=== PATIENT | male | born 1995 | race Caucasian/White ===

== ENCOUNTER 2016-08-16 15:29 | Emergency (ER) | payer OTHER ==
[~2016-08-16] VITALS: Ht 177.8 cm; Wt 75.5 kg
[2016-08-16 15:34] VITALS: Ht 177.8 cm; Wt 75.5 kg
[2016-08-16] MEDS ORDERED: SOD CHLORIDE 0.9% 500 ML IV STA (15:57)
[2016-08-16] MEDS ORDERED: LEVETIRACETAM 1000 MG (PMX) 100 ML IVPB STA (15:57)
[2016-08-16] MEDS ORDERED: OXCA300T41 PO (16:00)
[2016-08-16] MEDS ORDERED: LEVE750T70 PO ×2 (16:01→18:32)
--- NOTE | 2016-08-16 16:11 | ERD ---
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 He fell down had some generalized tonic-clonic movement lasting about a minute. After he was very briefly postictal. He does suffer from a seizure disorder and had a glioblastoma removed last month at [facility]. States that when he fell forward he hit his chin. He does not have any significant pain currently. He feels otherwise well and has not had any signs of infection recently. He is on Keppra and oxcarbazepine for seizures. Has been out of Keppra for 3 days. ROS All systems reviewed and are negative except as per history of present illness. Medications Home Meds Active Scripts Levetiracetam* (Keppra*) 750 Mg Tablet, 750 MG PO TID, #30 TAB Prov:JENNIFER FRANKLIN DO 08/16/16 Reported Medications Levetiracetam* (Keppra*) 750 Mg Tablet, 2250 MG PO BID, TAB 08/16/16 Oxcarbazepine* (Oxcarbazepine*) 300 Mg Tablet, 900 MG PO BID, TAB 08/16/16 Allergies Allergies: Coded Allergies: No Known Allergy (Unverified , 08/16/16) Physical Exam Vitals Vital Signs Date Time Temp Pulse Resp B/P Pulse Ox O2 Delivery O2 Flow Rate FiO2 08/16/16 18:21 97.8 76 137/84 96 Room Air 08/16/16 17:42 70 16 124/76 100 Room Air 08/16/16 16:40 97.7 72 13 129/82 100 Room Air 08/16/16 15:34 97.3 65 20 126/67 99 Physical Exam Const: [] No distress Head: Atraumatic Eyes: Normal Conjunctiva, EOMI, PERRLA ENT: Normal External Ears, Nose and Mouth., 2 cm laceration to left chin. Neck: Full range of motion..~ No meningismus. Resp: Clear to auscultation bilaterally Cardio: Regular rate and rhythm, no murmurs Abd: Soft, non tender, non distended. Normal bowel sounds Skin: No petechiae or rashes Back: No midline or flank tenderness Ext: No cyanosis, or edema Neur: Awake and alert and oriented 3, cranial nerves II through XII intact, 5 out of 5 strength all extremities, cerebellar finger to nose intact, normal gait Psych: Normal Mood and Affect Result Diagram: 08/16/16 1605 08/16/16 1605 Results 24 hrs Laboratory Tests Test 08/16/16 16:05 White Blood Count 6.610^3/ul Red Blood Count 4.5010^6/ul Hemoglobin 14.2g/dl Hematocrit 41.7% Mean Corpuscular Volume 92.7fl Mean Corpuscular Hemoglobin 31.6pg Mean Corpuscular Hemoglobin Concent 34.1g/dl Red Cell Distribution Width 11.9% Platelet Count 92610^3/UL Mean Platelet Volume 8.7fl Neutrophils % 60.4% Lymphocytes % 28.3% Monocytes % 7.6% Eosinophils % 2.6% Basophils % 0.8% Nucleated Red Blood Cells % 0.0/100WBC Neutrophils # 4.010^3/ul Lymphocytes # 1.910^3/ul Monocytes # 0.510^3/ul Eosinophils # 0.210^3/ul Basophils # 0.110^3/ul Nucleated Red Blood Cells # 0.010^3/ul Sodium Level 146mmol/L Potassium Level 4.4mmol/L Chloride Level 108mmol/L Carbon Dioxide Level 28mmol/L Anion Gap 14 Blood Urea Nitrogen 11mg/dl Creatinine 0.78mg/dl Glucose Level 99mg/dl Calcium Level 9.3mg/dl Carbamazepine (Tegretol) Level < 3.0ug/ml Current Medications Medications (Trade) Dose Ordered Sig/Rene Route PRN Reason Start Time Stop Time Status Last Admin Dose Admin Sodium Chloride 500 ml @ 500 mls/hr Q1H STAT IV 08/16/16 15:57 08/16/16 16:56 DC 08/16/16 16:39 Levetiracetam (Keppra 1,000mg/ 100ml (Pmx)) 100 ml @ 400 mls/hr ONCE STAT IVPB 08/16/16 15:57 08/16/16 16:11 DC 08/16/16 16:38 Lidocaine (Xylocaine 2% (Mdv) 20 ml) 20 ml ONCE ONCE INJ 08/16/16 18:00 08/16/16 18:01 DC Procedures/MDM Seizure and patient with underlying seizure disorder with history of tumor removal [address] head is negative for any acute process. Patient had a brief postictal period and feels otherwise normal. Was not taking seizure medicine for 3 days. Was loaded with 1 g of Keppra here and I am going to discharge him with his normal dose of Keppra which is 750 3 times daily. Laceration was repaired. Patient has PCP and neurology follow-up. Observed for 3 hours in the ER with no further seizure activity. Normal neurological exam. Suture removal in [address] head interpretation: Evidence of prior craniotomy, I see no acute process. I see no hemorrhage, no mass-effect no midline shift no skull fracture Laceration repair note, horizontal 2 cm laceration to left chin: Anesthetized with 2 cc of lidocaine: Irrigated with normal saline, 2 simple interrupted 4-0 Prolene sutures were used to close the laceration complicated by mild active bleeding. Hemostasis was achieved. Good closure was achieved. Patient tolerated procedure with no complications. Departure Diagnosis: Primary Impression: Laceration of chin Additional Impressions: Seizure Head injury Condition: Stable JENNIFER FRANKLIN DO Aug 16, 2016 16:11
[2016-08-16 16:12] LABS: ADD SCAN DIFF NO
[2016-08-16 16:16] LABS: BASOPHIL # 0.1 10^3/ul (0.0-0.1); BASOPHILS % 0.8 % (0.0-2.0); EOSINOPHILS # 0.2 10^3/ul (0.0-0.5); EOSINOPHILS % 2.6 % (0.0-7.0); HEMATOCRIT 41.7 % (42.0-52.0); HEMOGLOBIN 14.2 g/dl (14.0-18.0); LYMPHOCYTES # 1.9 10^3/ul (0.8-2.9); LYMPHOCYTES % 28.3 % (15.0-51.0); MEAN CORPUSCULAR HEMOGLOBIN 31.6 pg (29.0-33.0); MEAN CORPUSCULAR HGB CONC 34.1 g/dl (32.0-37.0); MEAN CORPUSCULAR VOLUME 92.7 fl (82.0-101.0); MEAN PLATELET VOLUME 8.7 fl (7.4-10.4); MONOCYTE # 0.5 10^3/ul (0.3-0.9); MONOCYTES % 7.6 % (0.0-11.0); NEUTROPHILS % 60.4 % (39.0-77.0); PLATELET COUNT 267 10^3/UL (140-415); RED CELL DISTRIBUTION WIDTH 11.9 % (11.5-14.5); WHITE BLOOD COUNT 6.6 10^3/ul (4.8-10.8)
[2016-08-16 16:38] LABS: CALCIUM 9.3 mg/dl (8.4-10.2); CREATININE 0.78 mg/dl (0.61-1.24); POTASSIUM 4.4 mmol/L (3.5-5.1)
--- NOTE | 2016-08-16 17:24 | RADRPT ---
PROCEDURE: CT Brain without contrast. CLINICAL INDICATION: Seizure. TECHNIQUE: A CT of the brain was performed on a GE [employer] 64-slice CT scanner utilizing axial imaging from the skull base through the vertex without IV contrast. Multiplanar reformatted images were made. Images were reviewed on a PACS workstation. The CTDIvol is 43.17 mGy and the DLP is 824 .79 mGycm. One or the following dose reduction techniques were used: -Automated exposure control. -Adjustment of the mA and/or KV according to patient's size. -Use of iterative reconstruction technique COMPARISON: None FINDINGS: There is no intracranial hemorrhage, mass effect, or midline shift. No extra-axial fluid collection is seen. The ventricles and sulci are normal in size and configuration. There is a small area of en cephalomalacia in the right sylvian fissure, likely postoperative in nature. The density of the brai n is normal, and the rey white matter differentiation appears well-preserved. The visualized paran ying sinuses and mastoid air cells are aerated.. There has been previous right temporal craniotomy. IMPRESSION: 1. No evidence of acute intracranial pathology. 2. Small area of encephalomalacia in the right sylvian fissure subjacent to a prior right temporal craniotomy. RPTAT: [facility] Physician Benjie Date Time Electronically viewed and signed by Physician Benjie on 08/16/2016 17:23 /
[2016-08-16 17:42] VITALS: RESP 16
[2016-08-16] MEDS ORDERED: LIDOCAINE 2% (MDV) 20 ML INJ INJ ONE (18:00)
[2016-08-16 18:21] VITALS: BP 137/84; PULSE 76; TEMP 97.8
== END 2016-08-16 18:42 | disposition home or self-care (01) ==
LOC: E/R 15:29
DX: S01.81XA Laceration without foreign body of other part of head, initial encounter (principal); R40.2252 Coma scale, best verbal response, oriented, at arrival to emergency department; R56.9 Unspecified convulsions; S09.90XA Unspecified injury of head, initial encounter; R40.2142 Coma scale, eyes open, spontaneous, at arrival to emergency department; R40.2362 Coma scale, best motor response, obeys commands, at arrival to emergency department; W18.09XA Striking against other object with subsequent fall, initial encounter; Y92.9 Unspecified place or not applicable
CPT/HCPCS: 70450; 80048; 80156; 85025; J1953; J7040; Z7610; 36415; 96365

== ENCOUNTER 2016-08-23 14:12 | Emergency (ER) | payer OTHER ==
[~2016-08-23] VITALS: Ht 175.3 cm; Wt 74.5 kg
[~2016-08-23 14:12] MED LIST: LEVE750T70 PO; OXCA300T41 PO
[2016-08-23 14:14] VITALS: Ht 175.3 cm; Wt 74.5 kg
[2016-08-23] MEDS ORDERED: MUPI15CR9 TOP (14:31)
--- NOTE | 2016-08-23 14:58 | ERD ---
ER Documentation Chief Complaint Date/Time DATE: 08/23/16 TIME: 14:54 Chief Complaint suture removal (chin) HPI This is a 20-year-old male presents to the ER for suture removal. Patient had 2 sutures to his chin after a seizure that occurred a week ago. Patient has not had any seizures since then has been taking his seizure medication as prescribed. Patient states that whenever his abrasion has had a difficult time feeling and he is developing surrounding redness. He denies any pain to the area denies any discharge. He denies any fevers or chills. ROS 12 point review of systems was done, all negative except per HPI. Medications Home Meds Active Scripts Mupirocin Calcium* (Mupirocin*) 2% - 15 Gram Cream..g., 1 APPLIC TOP TID for 7 Days, #1 TUB Prov:GREGORY VALDOVINOS 08/23/16 Levetiracetam* (Keppra*) 750 Mg Tablet, 750 MG PO TID, #30 TAB Prov:JENNIFER FRANKLIN DO 08/16/16 Reported Medications Levetiracetam* (Keppra*) 750 Mg Tablet, 2250 MG PO BID, TAB 08/16/16 Oxcarbazepine* (Oxcarbazepine*) 300 Mg Tablet, 900 MG PO BID, TAB 08/16/16 Allergies Allergies: Coded Allergies: No Known Allergy (Unverified , 08/16/16) PMhx/Soc History of Surgery: Yes (brain tumor biopsy-removal ) Anesthesia Reaction: No Hx Neurological Disorder: Yes (seizure) Hx Respiratory Disorders: No Hx Cardiac Disorders: No Hx Psychiatric Problems: No Hx Miscellaneous Medical Probl: No Hx Alcohol Use: No Hx Substance Use: No Hx Tobacco Use: No Physical Exam Vitals Vital Signs Date Time Temp Pulse Resp B/P Pulse Ox O2 Delivery O2 Flow Rate FiO2 08/23/16 14:14 99.6 82 18 120/63 99 Physical Exam Const: [] Head: Atraumatic. Patient has a scar to the right scalp from previous surgery. Eyes: Normal Conjunctiva ENT: Normal External Ears, Nose and Mouth. Resp: Clear to auscultation bilaterally Cardio: Regular rate and rhythm, no murmurs Skin: 2 simple interrupted sutures weren't placed at the chin. No wound dehiscence no discharge no redness nontender to palpation or warm to the touch. There is an abrasion to the right dorsal hand with mild surrounding erythema. there is no discharge or warmth to the touch Neur: Awake and alert Psych: Normal Mood and Affect Procedures/MDM This is a 20-year-old male presents to the ER for suture removal. Sutures are removed without any complications or bleeding. Laceration site Appeared to Be Infected. Patient Does Have an Abrasion to the Right Dorsal Hand does have some surrounding erythema. He'll be sent home with the parents on for this. He is afebrile and well-appearing. He has full range of motion of his hand and is neurovascularly intact. Patient is to follow-up with his primary care doctor within 1-2 days or return to ER sooner symptoms worsen. My medical decision making was shared with the patient understands and agrees with plan. Departure Diagnosis: Primary Impression: Encounter for removal of sutures Condition: Stable Patient Instructions: Suture Removal, No Complication Referrals: NAVARRO BAKER (PCP) Additional Instructions: Call your primary care doctor TOMORROW for an appointment during the next 1-2 days.See the doctor sooner or return here if your condition worsens before your appointment time. GREGORY VALDOVINOS Aug 23, 2016 14:58
== END 2016-08-23 14:32 | disposition home or self-care (01) ==
LOC: E/R 14:12
DX: Z48.02 Encounter for removal of sutures (principal)
CPT/HCPCS: 99283

== ENCOUNTER 2017-03-17 16:46 | Emergency (ER) | END 2017-03-17 20:15 | disposition home or self-care (01) ==

== ENCOUNTER 2018-05-09 13:51 | Emergency (ER) | payer SELFPAY ==
[~2018-05-09] VITALS: Ht 170.2 cm; Wt 76.7 kg
[~2018-05-09 13:51] MED LIST changes: +IBUP-1542 PO; +MUPI15CR9 TOP; +ONDA4TAB14 PO; +PROM5SYR2 PO
[2018-05-09 14:15] VITALS: BP 122/79; PULSE 100; RESP 16; Ht 170.2 cm; Wt 76.7 kg
== END 2018-05-09 16:00 | disposition left against medical advice (07) ==
LOC: FTE 13:51
DX: Z53.21 Procedure and treatment not carried out due to patient leaving prior to being seen by health care provider (principal)